=== PATIENT | male | born 1975 | race Caucasian/White ===

== ENCOUNTER 2024-08-25 13:27 | Emergency (ER) | payer BC ==
[~2024-08-25] VITALS: Ht 182.9 cm; Wt 86.2 kg
[2024-08-25 14:00] LABS: BASOPHILS % (AUTO) 0.1 % (0.0-2.0); HEMOGLOBIN 12.8 g/dL (12.5-16.3); LYMPHOCYTES # (AUTO) 1.3 K/uL (0.8-4.8); LYMPHOCYTES % (AUTO) 7.8 % (20.5-51.5); MEAN CORPUSCULAR HEMOGLOBIN 30.8 uug (23.8-33.4); MEAN CORPUSCULAR HGB CONC 34 g/dL (32.5-36.3); MEAN CORPUSCULAR VOLUME 91.2 fL (73.0-96.2); MONOCYTES # (AUTO) 2.2 K/uL (0.1-1.30); MONOCYTES % (AUTO) 13.6 % (0.0-11.0); NEUTROPHILS % (AUTO) 78.5 % (38.5-71.5); PLATELET COUNT (AUTO) 212 K/uL (152-348); RED BLOOD CELL COUNT(AUTO) 4.17 MIL/uL (4.06-5.63); RED CELL DISTRIBUTION WIDTH 15.7 % (12.1-16.2); WHITE BLOOD COUNT (AUTO) 16.5 K/uL (3.6-10.2)
[2024-08-25 14:12] LABS: CALCIUM 9.5 mg/dL (8.5-10.1); CARBON DIOXIDE 25 mmol/L (21-32); CHLORIDE 98 mmol/L (98-107); GLUCOSE 128 mg/dL (74-106); POTASSIUM 3.4 mmol/L (3.5-5.1); SODIUM SERUM 133 mmol/L (136-145); UREA NITROGEN, BLOOD 19 mg/dL (7-18)
[2024-08-25 14:16] LABS: AMMONIA < 10 umol/L (11-32)
[2024-08-25 14:17] LABS: DIFFERENTIAL COMMENT 1
[2024-08-25 14:25] LABS: ETHANOL < 3 MG/DL (0-10)
[2024-08-25 14:27] LABS: ACETAMINOPHEN < 10.0 ug/mL (10-30); ALANINE AMINOTRANSFERASE 166 U/L (16-63); ALBUMIN 2.9 g/dL (3.4-5.0); ALKALINE PHOSPHATASE 1113 U/L (50-136); ASPARTATE AMINOTRANSFERASE 176 U/L (15-37); BILIRUBIN,DIRECT 2.5 mg/dL (0.0-0.2); BILIRUBIN,TOTAL 3.3 mg/dL (0.2-1.0); TOTAL PROTEIN, SERUM 8.5 g/dL (6.4-8.2)
[2024-08-25 15:11] LABS: *BILIRUBIN,URIN NEGATIVE (NEGATIVE); *BLOOD, URINE 3+ (NEGATIVE); *CLARITY,URINE CLEAR (CLEAR); *COLOR,URINE YELLOW (YELLOW); *KETONES,URINE NEGATIVE (NEGATIVE); *PROTEIN,URINE TRACE (NEGATIVE); LEUKOCYTE ESTERASE ,URINE NEGATIVE (NEGATIVE); NITRITE, URINE NEGATIVE (NEGATIVE); UGLUCOSE NEGATIVE (NEGATIVE)
[2024-08-25 15:12] LABS: BACTERIA,URINE FEW /HPF (NONE SEEN); RBC,URINE 50-80 /HPF (0-3)
[2024-08-25 15:22] LABS: *AMPHETAMINE, URINE NEGATIVE (NEGATIVE); *BARBITURATE, URINE NEGATIVE (NEGATIVE); *BENZODIAZEPINE, URINE POSITIVE (NEGATIVE); *CANNABINOID, URINE POSITIVE (NEGATIVE); *COCCAINE, URINE NEGATIVE (NEGATIVE); *OPIATE, URINE NEGATIVE (NEGATIVE); *PHENCYCLIDINE SCREEN,URINE NEGATIVE (NEGATIVE); FENTANYL, URINE NEGATIVE (NEGATIVE)
[2024-08-25] MEDS ORDERED: diphenhydrAMINE 50 MG/1 ML VIAL ONE ×2 (15:29→19:05)
[2024-08-25] MEDS ORDERED: LORAZEPAM 2 MG/1 ML VIAL ONE ×2 (15:30→19:04)
[2024-08-25] MEDS ORDERED: HALOPERIDOL LACTATE 5 MG/1 ML VIAL ONE (15:30)
[2024-08-25] MEDS: LORAZEPAM 2 MG/1 ML VIAL IV ONE ×2 (15:50→19:12)
[2024-08-25] MEDS: HALOPERIDOL LACTATE 5 MG/1 ML VIAL IV ONE (15:50)
[2024-08-25] MEDS: diphenhydrAMINE 50 MG/1 ML VIAL IV ONE ×2 (15:50→19:12)
[2024-08-25 19:28] VITALS: O2SAT 99
== END 2024-08-25 19:29 | disposition short-term general hospital (02) ==
LOC: ER 13:27
DX: T41.291A Poisoning by other general anesthetics, accidental (unintentional), initial encounter (principal); R51.9 Headache, unspecified; K83.1 Obstruction of bile duct; F14.10 Cocaine abuse, uncomplicated; R31.9 Hematuria, unspecified; Z20.822 Contact with and (suspected) exposure to COVID-19; Y92.89 Other specified places as the place of occurrence of the external cause
CPT/HCPCS: 36415; 70450; 71045; 84484; 85025; 85651; 85730; A4606; A4663; G0480; J1200; J1630; J2060

== ENCOUNTER 2025-07-04 04:43 | Emergency (ER) | payer BC ==
[~2025-07-04] VITALS: Ht 177.8 cm; Wt 90.7 kg
[2025-07-04 04:34] VITALS: BP 144/80; O2SAT 96
== END 2025-07-04 05:04 | disposition left against medical advice (07) ==
LOC: ER 04:43
DX: Z00.00 Encounter for general adult medical examination without abnormal findings (principal); Z53.21 Procedure and treatment not carried out due to patient leaving prior to being seen by health care provider
CPT/HCPCS: A4606; A4663